=== PATIENT | female | born 1990 | race Two or more races ===

== ENCOUNTER 2023-05-28 13:32 | Outpatient (REF) | payer OTHER, SELFPAY ==
[2023-05-28 18:07] LABS: CT PCR NOT DETECTED (Not Detect.); NG PCR NOT DETECTED (Not Detect.)
[2023-05-29 10:34] LABS: BV Int Neg Control Negative (Negative); BV Int Pos Control Positive (Positive)
[2023-06-03 04:13] LABS: HPV mRNA E6/E7 rflx Not Detected (Not Detected)
== END 2023-05-28 13:33 | disposition home or self-care (01) ==
LOC: HO.LNP 13:32
PROVIDERS: Visit Provider Advanced Practice Midwife
DX: Z01.419 Encounter for gynecological examination (general) (routine) without abnormal findings (principal); Z11.51 Encounter for screening for human papillomavirus (HPV)
CPT/HCPCS: 0353U; 87480; 87510; 87624; 87660; 88142

== ENCOUNTER 2023-05-28 13:32 | Outpatient (AMB) | payer OTHER, SELFPAY ==
--- NOTE | 2023-05-28 13:35 | MHC.OFFVIS ---
Intake Vital Signs 05/28/23 13:37 Height 4 ft 10 in Weight 179 lb BMI 37.4 BP 130/72 Intake Visit Reasons: New patient Annual/DO NOT RS Intake Note: pt is requesting control Physics Instructor Required: No Information Interpreted: non-clinical & clinical Director Of Leadership Development: Director Of Leadership Development Present (Aidyn) Allergies No Known Allergies Allergy (Verified 05/28/23 13:40) Medication List - Last Reconciled 05/28/23 by Aarti Hollis CNM levonorgestrel-ethinyl estrad 0.15 mg-30 mcg (91) 1 tab PO DAILY Is last menstrual period known: Yes Last menstrual period: 05/21/23 Post menopausal: No Patient : No HPI New patient Annual/DO NOT RS HPI Details Deana bourgeoissharonda is here for new patient access representative. She used to get all her care in [place] she ran out of control pills and she said her primary ordered her some control pills and she had them from the pharmacy but somehow she got messed up because somebody told her to not take the placebo pills so she started skipping the placebo pills and then she did not restart so she had been off her pills for about a month and then it towards the end of April she passed this big huge clot that she was worried might of been a miscarriage and she so stressed out because she does not need a at this stage of her life. Her children are growing up and they have 3 children and she is busy working and making a new life here and would not be a good thing at this time. Does have on opened packs at home now from her [facility] but what is prescribed in the system is not in fact the pill that she was on in [place] and so we spent some significant time with her scrolling through her phone and finally finding access to her prescriptions from [place] so that we could change the formulation she was on a monthly pill getting her period every month and so I am prescribing that today with 3 month supply at a time with enough refills for over year. Reviewed in detail how to start the pill back and I recommend she started today as soon as she gets home because her menses came heavy this past Wednesday and is just finishing now and she wants to get protected as soon as possible. Then she can take her pill tomorrow morning and resume morning taking of pills. I reminded her to also put the label insert into the pack so that she has stop knows that she started this pack on Wednesday. She has been trying to get healthier and she has been off of soda for 73 days though she does not count maggi Rodriguez soda. She also has some fasting blood work to do for her primary care provider in she is waiting for a day that she can go and not have childcare responsibilities and running off to work. She thinks she had 1 abnormal Pap smear years ago but they were all normal since. She had 3 C sections all done at [place] and she lived in [place] all her life. 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 She got nervous when she saw the blood clot on her pad because she has been learning a lot about blood clots. [facility] Medical History (Updated 05/28/23 @ 14:50 by Aarti Hollis CNM) Hypertriglyceridemia Obesity Surgical History (Updated 03/11/23 @ 10:32 by Roseanne Beaver MD) History of section History of oral surgery Family History (Updated 03/11/23 @ 11:15 by Queenie Phillips [facility]) Mother Osteoarthritis Asthma Mental health disorder Maternal Grandmother Colon cancer HTN (hypertension) Son Asthma Paternal Uncle Substance use disorder Paternal Uncle Substance use disorder Social History (Updated 03/11/23 @ 13:00 by Roseanne Beaver MD) Housing: Apartment Patient Tobacco Use Status: Never used Tobacco e-Cigarette/Vaping Use: Never Used Substance Use Type: Marijuana service: No Current occupational status: employed Cognitive needs: No Hearing needs: No Vision needs: No Female Reproductive History Menstrual Duration of menses: 3-5 days Date of last menstrual period: 05/21/23 control method: pills Total pregnancies: 4 Ab spontaneous: 1 Multiple births: 3 Physical Exam Vital Signs: Last Vital Signs BP 130/72 05/28/23 13:37 BMI result Body Mass Index 37.4 Const General: healthy appearing, comfortable, no acute distress, well developed and alert Nutritional Appearance: average body habitus Orientation/consciousness: patient oriented x3 Limitations: no limitations HEENT Head: Yes normocephalic Neck Neck: Yes normal visual inspection Chest Chest palpation & inspection: normal inspection of the chest Breast/axilla inspection: normal inspection of the breasts and normal inspection of the axillae Breast/axilla palpation: normal palpation of the breasts and normal palpation of the axillae Resp Effort & Inspection: normal respiratory effort GI Inspection: Yes normal to inspection, No Abdominal wall edema and No distended Palpation (GI): Soft to palpation and nontender General: Yes bladder normal to palpation External Female Exam: normal external appearance and normal appearance of the urethra Speculum Exam - Vagina: normal appearance of the vagina, normal palpation and normal vaginal discharge Speculum Exam - Cervix: normal appearance of the cervix, normal palpation and nontender Bimanual exam- vagina & uterus: normal bimanual exam, normal palpation, uterine size normal, bladder normal to palpation, consistency normal, normal palpation, uterine mobility normal, uterine shape normal, No Cervical tenderness present, non-tender and no cervical motion tenderness Bimanual Exam- Adnexa, other: normal adnexae, no masses, normal and No adnexal tenderness Neuro General: patient oriented x3 Assessment & Plan Assessment & Plan (1) BCP ( control pills) initiation: Code(s): Z30.011 - Encounter for initial prescription of contraceptive pills (2) Well woman exam with routine gynecological exam: Code(s): Z01.419 - Encounter for gynecological examination (general) (routine) without abnormal findings (3) Screening for malignant neoplasm of cervix: Code(s): Z12.4 - Encounter for screening for malignant neoplasm of cervix (4) Screen for sexually transmitted diseases: Code(s): Z11.3 - Encounter for screening for infections with a predominantly sexual mode of transmission (5) control counseling: Code(s): Z30.09 - Encounter for other general counseling and advice on contraception Plan Deana taveras is here for new patient access representative. She used to get all her care in [place] she ran out of control pills and she said her primary ordered her some control pills and she had them from the pharmacy but somehow she got messed up because somebody told her to not take the placebo pills so she started skipping the placebo pills and then she did not restart so she had been off her pills for about a month and then it towards the end of April she passed this big huge clot that she was worried might of been a miscarriage and she so stressed out because she does not need a at this stage of her life. Her children are growing up and they have 3 children and she is busy working and making a new life here and would not be a good thing at this time. Does have on opened packs at home now from her [facility] but what is prescribed in the system is not in fact the pill that she was on in [place] and so we spent some significant time with her scrolling through her phone and finally finding access to her prescriptions from [place] so that we could change the formulation she was on a monthly pill getting her period every month and so I am prescribing that today with 3 month supply at a time with enough refills for over year. Reviewed in detail how to start the pill back and I recommend she started today as soon as she gets home because her menses came heavy this past Wednesday and is just finishing now and she wants to get protected as soon as possible. Then she can take her pill tomorrow morning and resume morning taking of pills. I reminded her to also put the label insert into the pack so that she has stop knows that she started this pack on Wednesday. She has been trying to get healthier and she has been off of soda for 73 days though she does not count maggi Rodriguez soda. She also has some fasting blood work to do for her primary care provider in she is waiting for a day that she can go and not have childcare responsibilities and running off to work. She thinks she had 1 abnormal Pap smear years ago but they were all normal since. She had 3 C sections all done at [place] and she lived in [place] all her life. 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 She got nervous when she saw the blood clot on her pad because she has been learning a lot about blood clots. -----Discussed in this visit the following: healthy balanced diet, regular and consistent exercise, getting recommended health screens, doing the best she can for her particular health concerns, kegel exercises, pap smear screening and followup recommendations, mammography screening and SBE, normal changes in cycles in her life stage--- . She is also worried about possible bacterial vaginosis so full testing is being done as along with the Pap. Additionally she noticed that well she was off the pills she felt really good and her sense of libido came back and she actually liked it. So the discussion also took place about the possible use of a ParaGard IUD in the future if she so chooses but she would have to come in signed paperwork and I would only want to insert at the very very beginning of her period because her cervix is so tiny and nulliparous as she is not delivered through her cervix ever and additionally her uterus is markedly anterior because of the scars. I gave her the written information and she will think about it STI blood work was ordered and she may get it done with her primary care provider prescribed blood work. Orders: Orders Hepatitis B Surface Antigen Today Z11.3 - Encounter for screening for infections with a predominantly sexual mode of transmission, Z12.4 - Encounter for screening for malignant neoplasm of cervix, Z30.09 - Encounter for other general counseling and advice on contraception Hepatitis C Antibody Today Z11.3 - Encounter for screening for infections with a predominantly sexual mode of transmission, Z12.4 - Encounter for screening for malignant neoplasm of cervix, Z30.09 - Encounter for other general counseling and advice on contraception HIV Ab/Ag Today Z11.3 - Encounter for screening for infections with a predominantly sexual mode of transmission, Z12.4 - Encounter for screening for malignant neoplasm of cervix, Z30.09 - Encounter for other general counseling and advice on contraception Syphilis Screen Today Z11.3 - Encounter for screening for infections with a predominantly sexual mode of transmission, Z12.4 - Encounter for screening for malignant neoplasm of cervix, Z30.09 - Encounter for other general counseling and advice on contraception Pap Smear Today Z01.419 - Encounter for gynecological examination (general) (routine) without abnormal findings, Z11.3 - Encounter for screening for infections with a predominantly sexual mode of transmission, Z12.4 - Encounter for screening for malignant neoplasm of cervix, Z30.09 - Encounter for other general counseling and advice on contraception Bacterial Vaginosis Panel Today Z01.419 - Encounter for gynecological examination (general) (routine) without abnormal findings, Z11.3 - Encounter for screening for infections with a predominantly sexual mode of transmission, Z12.4 - Encounter for screening for malignant neoplasm of cervix, Z30.09 - Encounter for other general counseling and advice on contraception CT NG by PCR Today Z01.419 - Encounter for gynecological examination (general) (routine) without abnormal findings, Z11.3 - Encounter for screening for infections with a predominantly sexual mode of transmission, Z12.4 - Encounter for screening for malignant neoplasm of cervix, Z30.09 - Encounter for other general counseling and advice on contraception Medications: New levonorgestrel-ethinyl estrad 0.15-0.03 mg 1 tab PO DAILY 84 tabs 4RF Coding Level of Care Code New Pt Prev Care 18-39yr([id number] Diagnoses BCP ( control pills) initiation Z30.011 Well woman exam with routine gynecological exam Z01.419 Screening for malignant neoplasm of cervix Z12.4 Screen for sexually transmitted diseases Z11.3 control counseling Z30.09
[2023-05-28 13:37] VITALS: BP 130/72; BMI 37.4
== END 2023-05-28 14:50 | disposition home or self-care (01) ==
LOC: HO.HWS 13:32
PROVIDERS: PCP Internal Medicine; Visit Provider Advanced Practice Midwife
DX: Z01.419 Encounter for gynecological examination (general) (routine) without abnormal findings (principal); Z12.4 Encounter for screening for malignant neoplasm of cervix; Z11.3 Encounter for screening for infections with a predominantly sexual mode of transmission; Z30.09 Encounter for other general counseling and advice on contraception
CPT/HCPCS: 99385

== ENCOUNTER 2023-12-17 14:55 | Outpatient (REF) | payer OTHER, SELFPAY ==
[2023-12-18 05:23] LABS: CT PCR NOT DETECTED (Not Detect.); NG PCR NOT DETECTED (Not Detect.)
[2023-12-18 13:48] LABS: BV Int Neg Control Negative (Negative); BV Int Pos Control Positive (Positive)
== END 2023-12-17 14:56 | disposition home or self-care (01) ==
LOC: HO.LAB 14:55
PROVIDERS: Visit Provider Advanced Practice Midwife
DX: Z01.419 Encounter for gynecological examination (general) (routine) without abnormal findings (principal); N89.8 Other specified noninflammatory disorders of vagina; R35.0 Frequency of micturition; Z20.2 Contact with and (suspected) exposure to infections with a predominantly sexual mode of transmission
CPT/HCPCS: 0353U; 81025; 87480; 87510; 87660; 99212

== ENCOUNTER 2023-12-17 14:55 | Outpatient (AMB) | payer OTHER, SELFPAY ==
[2023-12-17 15:04] VITALS: BP 120/72; BMI 36.2
--- NOTE | 2023-12-17 15:04 | A.OFFVIS_ITS ---
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 Required: No Information Interpreted: clinical only Inventory Checker: Inventory Checker Present Allergies No Known Allergies Allergy (Verified 12/17/23 15:04) Medication List - Last Reconciled 12/17/23 by Aarti Hollis CNM levonorgestrel-ethinyl estrad 0.15 mg-30 mcg (91) 1 tab PO DAILY levonorgestrel-ethinyl estrad 0.15-0.03 mg 1 tab PO DAILY Is last menstrual period known: Yes HPI Vaginal discharge HPI Details Patient is here because she is has this problematic discharge that she is noticed before it smells to her like when she had BV she has got a and knowing white discharge that she really does not like she has been sexually active with her partner she did mess up on her pills a little bit and had to double up a few times so she has not gotten her period yet and she will do a test here to also she has been feeling a little frequency of urination. She just ran here from work so she has not Peed yet. She will give us a urine test there is a clingy white homogeneous discharge consistent with a bacterial vaginosis so extensive teaching and discussion about BV took place during this visit including recommendation to have her partner wear condoms which he does not want to do and the treatments that are available I gave her the option of Metrogel versus metronidazole pills with all of the discussion about precautions while taking and while being treated and she opted to take the pills she will possibly start them tomorrow. She knows about no alcohol while she is taking them. Also recommend food in her stomach because of the possibility of gastric upset. Discussed in general the more common treatments for bacterial vaginosis include metronidazole pills, or metronidazole gel which can be repeated more frequently. Additionally there is the option of [id number] boric acid capsules that would be placed in the vagina and they can sometimes be used more frequently as well however condoms are still the best plan in terms of prevention. Testing for STIs done. In addition we reviewed her control pills in detail because she was told a generic name for them so we double checked what she [facility] it is in fact exact same formulation of the OCPs that was prescribed. She is going to continue on her pills as she is moving forward having doubled up this week regardless of menses. test to be done now [facility] Medical History (Updated 12/17/23 @ 15:12 by Aarti Hollis CNM) Obesity Hypertriglyceridemia Surgical History (Updated 03/11/23 @ 10:32 by Roseanne Beaver MD) History of oral surgery History of section Family History (Updated 03/11/23 @ 11:15 by Queenie Phillips CMA) Mother Osteoarthritis Asthma Mental health disorder Maternal Grandmother Colon cancer HTN (hypertension) Son Asthma Paternal Uncle Substance use disorder Paternal Uncle Substance use disorder Social History (Updated 03/11/23 @ 13:00 by Roseanne Beaver MD) Housing: Apartment Patient Tobacco Use Status: Never used Tobacco e-Cigarette/Vaping Use: Never Used Substance Use Type: Marijuana service: No Current occupational status: employed Cognitive needs: No Hearing needs: No Vision needs: No Female Reproductive History Menstrual Age of Menarche: 14 Duration of menses: 3-5 days control method: pills Total pregnancies: 4 Full term: 3 Date of last pap smear: 05/31/23 (negative) History of abnormal pap smear: No Physical Exam Vital Signs: Last Vital Signs BP 120/72 12/17/23 15:04 BMI result Body Mass Index 36.2 Other: Speculum exam within normal limits though discharge is white clingy creamy claims to vaginal [place] consistent with BV cervix nulliparous deep in pelvis difficult to palpate but nontender uterus nontender good muscle tone. External Female Exam: normal external appearance Speculum Exam - Vagina: normal appearance of the vagina Speculum Exam - Cervix: normal appearance of the cervix Bimanual exam- vagina & uterus: normal bimanual exam, uterine size normal, consistency normal, uterine mobility normal, uterine shape normal and non-tender Bimanual Exam- Adnexa, other: normal adnexae, no masses and No adnexal tenderness Results Reviewed Results Reviewed: Back test negative Assessment & Plan Assessment & Plan (1) Screen for sexually transmitted diseases: Code(s): Z11.3 - Encounter for screening for infections with a predominantly sexual mode of transmission (2) Screening for malignant neoplasm of cervix: Comment: 05/28/2023 Pap is negative with negative HPV. Code(s): Z12.4 - Encounter for screening for malignant neoplasm of cervix (3) Problematic vaginal discharge: Code(s): N89.8 - Other specified noninflammatory disorders of vagina Plan Patient is here because she is has this problematic discharge that she is noticed before it smells to her like when she had BV she has got a and knowing white discharge that she really does not like she has been sexually active with her partner she did mess up on her pills a little bit and had to double up a few times so she has not gotten her period yet and she will do a test here to also she has been feeling a little frequency of urination. She just ran here from work so she has not Peed yet. She will give us a urine test there is a clingy white homogeneous discharge consistent with a bacterial vaginosis so extensive teaching and discussion about BV took place during this visit including recommendation to have her partner wear condoms which he does not want to do and the treatments that are available I gave her the option of Metrogel versus metronidazole pills with all of the discussion about precautions while taking and while being treated and she opted to take the pills she will possibly start them tomorrow. She knows about no alcohol while she is taking them. Also recommend food in her stomach because of the possibility of gastric upset. Discussed in general the more common treatments for bacterial vaginosis include metronidazole pills, or metronidazole gel which can be repeated more frequently. Additionally there is the option of [id number] boric acid capsules that would be placed in the vagina and they can sometimes be used more frequently as well however condoms are still the best plan in terms of prevention. Testing for STIs done. In addition we reviewed her control pills in detail because she was told a generic name for them so we double checked [facility] it is in fact exact same formulation of the OCPs that was prescribed. She is going to continue on her pills as she is moving forward having doubled up this week regardless of menses. test to be done now Orders: Orders Bacterial Vaginosis Panel Today Z20.2 - Contact with and (suspected) exposure to infections with a predominantly sexual mode of transmission CT NG by PCR Today Z01.419 - Encounter for gynecological examination (general) (routine) without abnormal findings Medications: New metronidazole 500 mg PO Q12H 14 tabs 0RF Coding Level of Care Code Est Pt Level 3 (72127) Diagnoses Screen for sexually transmitted diseases Z11.3 Screening for malignant neoplasm of cervix Z12.4 Problematic vaginal discharge N89.8
== END 2023-12-17 15:39 | disposition home or self-care (01) ==
LOC: HO.HWSM 14:55
PROVIDERS: Visit Provider Advanced Practice Midwife
DX: Z11.3 Encounter for screening for infections with a predominantly sexual mode of transmission (principal); Z12.4 Encounter for screening for malignant neoplasm of cervix; N89.8 Other specified noninflammatory disorders of vagina; Z32.02 Encounter for pregnancy test, result negative
CPT/HCPCS: 99213

== ENCOUNTER 2024-03-17 14:30 | Outpatient (AMB) | payer OTHER, SELFPAY ==
[2024-03-17 14:40] VITALS: BP 124/76; BMI 36.6
--- NOTE | 2024-03-17 14:40 | A.OFFVIS_ITS ---
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 Information Interpreted: non-clinical & clinical Net Solutions Architect: Net Solutions Architect Present (Carlie) Allergies No Known Allergies Allergy (Verified 03/17/24 14:49) Medication List - Last Reconciled 03/17/24 by Aarti Hollis CNM levonorgestrel-ethinyl estrad 0.15-0.03 mg 1 tab PO DAILY Is last menstrual period known: No Post menopausal: No HPI HPI vaginal discharge: Details: Patient is here she called this morning she is having some vaginal white di scharge and some vaginal itching in addition she has missed up on her pills she has had a lot going on with her kids and after-school activities and activities and she had to travel to [place] because her uncle and she had just support her father and when she came back she has been so busy with work and school and kids she has messed up on her control pills and has not taken them all week so she missed from last Wednesday through today. Her partner works in [place] and comes home and they see each other for 2 days on around the weekend so she last had sex over a week ago. She has not started bleeding yet. She feels embarrassed that she messed up on the pills so much.. [facility] Medical History Obesity Hypertriglyceridemia Surgical History History of oral surgery History of section Family History Mother Osteoarthritis Asthma Mental health disorder Maternal Grandmother Colon cancer HTN (hypertension) Son Asthma Paternal Uncle Substance use disorder Paternal Uncle Substance use disorder Social History Housing: Apartment Patient Tobacco Use Status: Never used Tobacco e-Cigarette/Vaping Use: Never Used Substance Use Type: Marijuana service: No Current occupational status: employed Cognitive needs: No Hearing needs: No Vision needs: No Female Reproductive History Menstrual Age of Menarche: 14 Duration of menses: 3-5 days control method: pills Date of last pap smear: 05/31/23 (negative) Physical Exam Vital Signs: Last Vital Signs BP 124/76 03/17/24 14:40 BMI result Body Mass Index 36.6 Other: Vagina is pink discharge is white scant appears either consistent with normal or very very mild yeast cervix is extremely difficult to visualize very anterior. I did not get a complete view of it today. External Female Exam: normal external appearance and normal appearance of the urethra Speculum Exam - Vagina: normal appearance of the vagina and normal vaginal discharge Speculum Exam - Cervix: normal appearance of the cervix, Cervical os closed and Other cervical findings present (Her cervix is markedly anterior secondary to her multiple c/s) Assessment & Plan Assessment & Plan (1) Problematic vaginal discharge: Comment: 03/17/24-will treat as mild yeast today awaiting cultures. Code(s): N89.8 - Other specified noninflammatory disorders of vagina Category: Medical (2) control counseling: Comment: Has missed 5 days of pills, options discussed she will probably double up for 3 days but also I recommend condoms at minimum for 2 weeks from now on and any time she messes up. Other options discussed. Code(s): Z30.09 - Encounter for other general counseling and advice on contraception Category: Medical (3) Screen for sexually transmitted diseases: Code(s): Z11.3 - Encounter for screening for infections with a predominantly sexual mode of transmission Category: Medical Plan Testing done for gonorrhea chlamydia trichomoniasis Gardnerella and Nieves. We will treat as mild yeast it appears very close to normal quite frankly Rx sent for Monistat to use internally and externally. Results of testing will be available Wednesday. For the control pills since she is missed 5 days discussed the option of either waiting for her menses to come and then starting again with a new pack or as she seems to prefer doubling up with her pills so in this case she would need to double up for least 3 days but she also needs to use condoms for the minimum of the next 2 weeks and any time she ever messes up on her pills again in the future. We will schedule her annual exam whenever it is due I refilled her pills as well so she does not run out Discussed need for rest recommend no sex without a condom for minimum of 2 weeks. We have also discussed alternative methods she has not interested in something with hormones discussed the JALEESA other method with new hormones would be a ParaGard IUD it would be challenging to insert she had an IUD in the past but it got stuck to be surgically removed. Her cervix exam really anterior and her uterus is probably slightly fixed anteriorly secondary to her multiple . Orders: Orders CT NG by PCR Today N89.8 - Other specified noninflammatory disorders of vagina Bacterial Vaginosis Panel Today N89.8 - Other specified noninflammatory disorders of vagina Medications: New miconazole nitrate 2% (Miconazole-7) 1 appful vaginal BEDTIME 7 days 45 grams 1RF Refilled levonorgestrel-ethinyl estrad 0.15-0.03 mg 1 tab PO DAILY 84 tabs 4RF Coding Level of Care Code Est Pt Level 3 (52619) Diagnoses Problematic vaginal discharge N89.8 control counseling Z30.09 Screen for sexually transmitted diseases Z11.3
== END 2024-03-17 15:16 | disposition home or self-care (01) ==
LOC: HO.HWSM 14:30
PROVIDERS: Visit Provider Advanced Practice Midwife
DX: N89.8 Other specified noninflammatory disorders of vagina (principal); Z30.09 Encounter for other general counseling and advice on contraception
CPT/HCPCS: 99213

== ENCOUNTER 2024-03-17 14:30 | Outpatient (REF) | payer OTHER, SELFPAY ==
[2024-03-18 10:47] LABS: Bacterial Vaginosis PCR NEGATIVE (Negative); Candida Group PCR DETECTED (Not Detect); Candida glab krusei PCR NOT DETECTED (Not Detect); Trichomonas vaginalis PCR NOT DETECTED (Not Detect)
[2024-03-18 10:56] LABS: CT PCR NOT DETECTED (Not Detect.); NG PCR NOT DETECTED (Not Detect.)
== END 2024-03-17 14:31 | disposition home or self-care (01) ==
LOC: HO.LNP 14:30
PROVIDERS: Visit Provider Advanced Practice Midwife
DX: N89.8 Other specified noninflammatory disorders of vagina (principal); Z20.2 Contact with and (suspected) exposure to infections with a predominantly sexual mode of transmission; Z30.09 Encounter for other general counseling and advice on contraception
CPT/HCPCS: 0352U; 0353U; 99212

== ENCOUNTER 2024-09-28 15:09 | Outpatient (REF) | payer OTHER, SELFPAY ==
[2024-09-29 15:06] LABS: CT PCR NOT DETECTED (Not Detect.); NG PCR NOT DETECTED (Not Detect.)
[2024-09-29 17:24] LABS: Bacterial Vaginosis PCR NEGATIVE (Negative); Candida Group PCR DETECTED (Not Detect); Candida glab krusei PCR NOT DETECTED (Not Detect); Trichomonas vaginalis PCR NOT DETECTED (Not Detect)
== END 2024-09-28 15:10 | disposition home or self-care (01) ==
LOC: HO.LAB 15:09
PROVIDERS: PCP Internal Medicine; Visit Provider Advanced Practice Midwife
DX: Z01.419 Encounter for gynecological examination (general) (routine) without abnormal findings (principal); N89.8 Other specified noninflammatory disorders of vagina; Z20.2 Contact with and (suspected) exposure to infections with a predominantly sexual mode of transmission
CPT/HCPCS: 0352U; 87491; 87591; 99395; 99459

== ENCOUNTER 2024-09-28 15:09 | Outpatient (AMB) | payer OTHER, SELFPAY ==
[2024-09-28 15:07] VITALS: BP 118/70; BMI 36.2
--- NOTE | 2024-09-28 15:07 | A.OFFVIS_ITS ---
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 She is working she is juggling care for her 3 kids. She is not entirely certain when her last period was but she felt like she was getting it at work and she got cortex on the way home and so she is looking of the her phone trying to figure out exactly what day she got her period she thinks to her best guess that it was maybe the 6th of the 7th but she thinks it was starting it would so probably with . She was thinking of starting the pills over next Wednesday starting fresh. She does have condoms at home and she intends to make a partner use them. She did check with her fiance about her last period could she thought he had remember better but he did not either. She had an IUD in the past but she says it got stuck and she is nervous to how that happen again she had 3 C sections so it is hard to reach her cervix. [facility] Medical History Obesity Hypertriglyceridemia Surgical History History of oral surgery History of section Family History Mother Osteoarthritis Asthma Mental health disorder Maternal Grandmother Colon cancer HTN (hypertension) Son Asthma Paternal Uncle Substance use disorder Paternal Uncle Substance use disorder Social History Housing: Apartment Patient Tobacco Use Status: Never used Tobacco e-Cigarette/Vaping Use: Never Used Substance Use Type: Marijuana service: No Current occupational status: employed Cognitive needs: No Hearing needs: No Vision needs: No Female Reproductive History Menstrual Age of Menarche: 14 Duration of menses: 3-5 days Date of last menstrual period: 09/21/24 control method: pills Total pregnancies: 3 Full term: 3 Date of last pap smear: 05/31/23 (negative) Physical Exam Vital Signs: Last Vital Signs BP 118/70 09/28/24 15:07 BMI result Body Mass Index 36.2 Const General: healthy appearing, comfortable, no acute distress, well developed and alert Nutritional Appearance: average body habitus Orientation/consciousness: patient oriented x3 Limitations: no limitations HEENT Head: Yes normocephalic Neck Neck: Yes normal visual inspection Chest Chest palpation & inspection: normal inspection of the chest Breast/axilla inspection: normal inspection of the breasts and normal inspection of the axillae Breast/axilla palpation: normal palpation of the breasts and normal palpation of the axillae Resp Effort & Inspection: normal respiratory effort GI Inspection: Yes normal to inspection, No Abdominal wall edema and No distended Palpation (GI): Soft to palpation and nontender Other: Cervix is pink nulliparous difficult to fully visualize and palpate small very anterior secondary to scarring from C-sections affixing uterus anteriorly. Uterus anteverted nontender good muscle tone General: Yes bladder normal to palpation External Female Exam: normal external appearance and normal appearance of the urethra Speculum Exam - Vagina: normal appearance of the vagina, normal palpation and normal vaginal discharge Speculum Exam - Cervix: normal appearance of the cervix, normal palpation and nontender Bimanual exam- vagina & uterus: normal bimanual exam, normal palpation, uterine size normal, bladder normal to palpation, consistency normal, normal palpation, uterine mobility normal, uterine shape normal, No Cervical tenderness present, non-tender and no cervical motion tenderness Bimanual Exam- Adnexa, other: normal adnexae, no masses, normal and No adnexal tenderness Neuro General: patient oriented x3 Results Reviewed Results Reviewed: brandi: Darling Erwin Age/Sex: 33/F Attending: Aarti Hollis CNM : 1990 Submitted by: Aarti Hollis CNM Copies to: MR #: [id number] Status: DEP REF Collected: 05/28/23 Location: [facility] Received: 05/31/23 Interpretation Satisfactory for evaluation. Negative for intraepithelial lesion or malignancy. HPV mRNA E6/E7: NOT DETECTED This assay detects E6/E7 viral messenger RNA (mRNA) from 14 high-risk HPV types (16, 18, 31, 33, 35, 39, 45, 51, 52, 56, 58, 59, 66, 68) HPV testing performed by [facility], [place], [place]. See reference laboratory pion of the EMR for entire report. Clinical Information LMP:05/21/23 Previous PAP test:Unknown date/findings Material Received ThinPrep-Cervical Electronically Signed By: OPAL Mora (ASCP) 06/15/23 1022 The Pap Test is a screening procedure with the inherent possibility of both false negative and false positive results. Results should be interpreted in the context of historic and current clinical findings. Reliability of the Pap Test is enhanced by performing the test on a regular repetitive basis. Patient: Darling Erwin Age/Sex: 33/F MR#: [id number] Page 1 of 1 Assessment & Plan Assessment & Plan (1) BCP ( control pills) initiation: Comment: She has messed up so many times and the pills the today I am recommending she simply start right over again as a new start. I strongly recommend taking them morning since she keeps forgetting not with the 1 exception be to start this evening to get her started on the pack then tomorrow morning start taking pills Q am. Code(s): Z30.011 - Encounter for initial prescription of contraceptive pills Category: Medical (2) Well woman exam with routine gynecological exam: Code(s): Z01.419 - Encounter for gynecological examination (general) (routine) without abnormal findings Category: Medical (3) Screening for malignant neoplasm of cervix: Comment: 05/28/2023 Pap is negative with negative HPV. Code(s): Z12.4 - Encounter for screening for malignant neoplasm of cervix Category: Medical (4) control counseling: Comment: Has missed 5 days of pills, options discussed she will probably double up for 3 days but also I recommend condoms at minimum for 2 weeks from now on and any time she messes up. Other options discussed.///09/28/24-had messed up on pills again believes LMP 09/22. I recommend she restart the pills this evening and from tomorrow morning on take them every morning reviewed pills in detail. Code(s): Z30.09 - Encounter for other general counseling and advice on contraception Category: Medical Plan -----Discussed in this visit the following: healthy balanced diet, regular and consistent exercise, getting recommended health screens, doing the best she can for her particular health concerns, kegel exercises, pap smear screening and followup recommendations, mammography screening and SBE, normal changes in cycles in her life stage--- . She is not due for Pap smear her last 1 was negative. Testing done for STIs but her discharge appears clear normal. Reviewed how she has been dealing with the pills she has messed up on them several times and keeps having to restart. She is not interested in anything else is this time life is very stressful and she has juggling a lot with having bought a new house and working in caring for her 3 kids she is on her way to an appointment with her son at 03:45 and so is in a hurry today. Reviewed with her her best guess of when her last periods started to her best guess it probably started on the though the because it with a week day and she was heading home from work when she had to stop it by [employer] and that would lean towards Wednesday the . Based on this I recommend that she go home and start her pill had this evening when she gets home and tomorrow take the 2nd day in the Pap and from then on try to take them every morning she had taken them at night and keeps forgetting them. Reviewed that most times, we are all sharp food in the morning and better at remembering things like did medications in the morning I reminded her tease the day of the week sticker and a fix the Wednesday etc. sticker to pill Pack to keep her straight. I do not recommend she wait until Wednesday because that would be more than 5 days since the start of her LMP today is day 6 by her recollection. She does not need any other testing for STIs other than what we did with the exam exam appears within normal limits I also urged her to think about whether not she would be open to any other long-term method since she has so much on her plate in remembering pills is becoming challenging. RTC 1 year Orders: Orders Bacterial Vaginosis Panel Today N89.8 - Other specified noninflammatory disorders of vagina CT NG by PCR Today N89.8 - Other specified noninflammatory disorders of vagina, Z01.419 - Encounter for gynecological examination (general) (routine) without abnormal findings, Z20.2 - Contact with and (suspected) exposure to infections with a predominantly sexual mode of transmission Medications: Refilled levonorgestrel-ethinyl estrad 0.15-0.03 mg 1 tab PO DAILY 84 tabs 4RF Coding Level of Care Code Est Pt Prev Care 18-39y(45969) Diagnoses BCP ( control pills) initiation Z30.011 Well woman exam with routine gynecological exam Z01.419 Screening for malignant neoplasm of cervix Z12.4 control counseling Z30.09
== END 2024-09-28 15:42 | disposition home or self-care (01) ==
LOC: HO.HWSM 15:09
PROVIDERS: PCP Internal Medicine; Visit Provider Advanced Practice Midwife
DX: Z30.011 Encounter for initial prescription of contraceptive pills (principal); Z01.419 Encounter for gynecological examination (general) (routine) without abnormal findings; Z12.4 Encounter for screening for malignant neoplasm of cervix; Z30.09 Encounter for other general counseling and advice on contraception
CPT/HCPCS: 99395

== ENCOUNTER 2025-08-20 09:46 | Outpatient (AMB) | payer BC, MEDICAID, SELFPAY ==
--- NOTE | 2025-08-20 10:52 | A.OFFPC_ITS ---
Vital Signs 08/20/25 10:55 Height 4 ft 10 in Weight 181 lb BMI 37.8 BP 110/80 Blood Pressure Location Lt brachial Position Sitting Respiration 16 Pulse 81 Pulse Source Pulse Oximeter Temp 97.8 F Temp Source Oral Pulse Oximetry (%) 97 Oxygen Delivery Method Room Air Intake Visit Reasons: Annual PE Intake Note: Pt is here today for her PE: Last papsmear 05/31/23 Stapler Coil Unit Required: No Allergies No Known Allergies Allergy (Verified 08/20/25 11:24) Medication List - Last Reconciled 08/20/25 by Roseanne Beaver MD levonorgestrel-ethinyl estrad 0.15-0.03 mg 1 tab PO DAILY Tobacco use date assessed: 08/20/25 Dental Screening Dental Screen Date: 08/20/25 Did you have a dental visit in the last 12 months?: Yes Did you have a dental problem in the last 6 months where you did not have access to dental care?: No Was dental information given to patient?: Patient has dentist HPI Annual PE HPI Details 35-year-old lady here today for her phys ical exam. She sees [facility], for her routine Pap and pelvic exam, with last cervical cancer screening done in 2022 with benign findings. Currently on control pills for contraception. Flu vaccine given today. PFSH Medical History Obesity Hypertriglyceridemia Surgical History History of oral surgery History of section Family History Mother Osteoarthritis Asthma Mental health disorder Maternal Grandmother Colon cancer HTN (hypertension) Son Asthma Paternal Uncle Substance use disorder Paternal Uncle Substance use disorder Social History Housing: Apartment Patient Tobacco Use Status: Never used Tobacco e-Cigarette/Vaping Use: Never Used Substance Use Type: Marijuana service: No Current occupational status: employed Cognitive needs: No Hearing needs: No Vision needs: No Female Reproductive History Menstrual Age of Menarche: 14 Questionnaire PHQ-9 Over the last 2 weeks, how often have you been bothered by any of the following problems? 1. Little interest or pleasure in doing things: not at all 2. Feeling down, depressed, or hopeless: not at all 3. Trouble falling or staying asleep, or sleeping too much: not at all 4. Feeling tired or having little energy: several days 5. Poor appetite or overeating: not at all 6. Feeling bad about yourself - or that you are a failure or have let yourself or your family down: not at all 7. Trouble concentrating on things, such as reading the newspaper or watching television: not at all 8. Moving or speaking so slowly that other people could have noticed. Or the opposite - being so fidgety or restless that you have been moving around a lot more than usual: not at all 9. Thoughts that you would be better off or of hurting yourself in some way: not at all Total score: 1 Depression Screening Interpretation: Negative Depression Screening Done: Yes 50516 - PHQ-9 Billing: Yes Source: Developed by Drs. Wallace Sesay, Lizbet Velasquez, Unruly Pagan and colleagues, with an educational kenan from [email or web address]. Thrive Questionnaire Date Thrive assessed: 08/20/25 I am a: Patient What is your living situation today?: I have a steady place to live Within the past 12 months, did the food you bought not last and you didn't have the money to get more?: I choose not to answer this question Within the past 12 months, did you worry whether your food would run out before you got money to buy more?: I choose not to answer this question Do you have trouble paying for medicines?: I choose not to answer this question Do you have trouble getting transportation to medical appointments?: I choose not to answer this question Do you have trouble paying your heating and electricity bill?: I choose not to answer this question Do you have trouble taking care of your child, family member or friend?: I choose not to answer this question Do you have trouble with day-to-day activities such as bathing, preparing meals, shopping, managing finances, etc.?: I choose not to answer this question Are you currently unemployed and looking for a job?: No Are you interested in more education?: I choose not to answer this question THRIVE Score: 0 AUDIT C Alcohol Use Questionnaire (AUDIT-C) 1. How often do you have a drink containing alcohol?: Never 2. How many drinks containing alcohol do you have on a typical day when you are drinking?: 1 or 2 3. How often do you have six or more drinks on one occasion?: Never Total Score: 0 Score Reviewed/Action Taken: Yes AUGUSTUS-7 AMB Questionnaire AUGUSTUS-7 Date AUGUSTUS - 7 assessed: 08/20/25 Feeling nervous, anxious, or on edge: 0 = Not at all Not being able to stop or control worryin = Not at all Worrying too much about different things: 0 = Not at all Trouble relaxin = Not at all Being so restless that it is hard to sit still: 0 = Not at all Becoming easily annoyed or irritable: 0 = Not at all Feeling afraid as if something awful might happen: 0 = Not at all Total AUGUSTUS-7 score (0-4 normal; 5-9 mild; 10-14 moderate; 15-21 severe): 0 Source: Developed by Drs. Wallace Sesay, Lizbet Velasquez, Unruly Pagan and colleagues, with an educational kenan from [email or web address]. AUGUSTUS-7 Assessment Billing AUGUSTUS-7 Assessment Tool: AUGUSTUS-7 Assessment 87715 Physical exam (Primary Care) Vital Signs: Last Vital Signs Temp 97.8 F 08/20/25 10:55 Pulse 81 08/20/25 10:55 Resp 16 08/20/25 10:55 BP 110/80 08/20/25 10:55 Pulse Ox 97 08/20/25 10:55 Oxygen Delivery Method Room Air 08/20/25 10:55 BMI result Body Mass Index 37.8 Tobacco/Smoking Status: Tobacco use Status Tobacco use date assessed 08/20/25 08/20/25 11:02 Patient Tobacco Use Status Never used Tobacco 08/20/25 10:52 e-Cigarette/Vaping Use Never Used 08/20/25 10:52 PHQ-9: PHQ-9 Score PHQ-9: Total score 1 08/20/25 11:25 Depression Screening Interpretation: Negative Thrive Assessment: Date of Thrive Assessment Date Thrive assessed 08/20/25 08/20/25 10:52 Office Procedures Flu Questionnaire Does the patient have a severe egg allergy?: No Does the patient have severe life threatening allergies?: No Does the patient have a fever or illness today?: No Has the patient ever had Guillain-[place] Syndrome?: No Has the patient ever had any past reaction to a flu shot?: No Immunizations Fluarix [id number] (PF) 45 mcg (15 mcg x 3)/0.5 mL IM syringe Performing Provider: Roseanne Beaver MD Performing Location: [facility] Administered by: Queenie Phillips CMA on 08/20/25 11:25 Dose Route Admin Location Dispensed Lot Number Expiration Date NDC Flight Engineer Instructor 0.5 mL IM Right Deltoid 0.5 mL [id number] 04/16/26 11925-844-28 [employer] VIS Given Date VIS Provided VIS Publication Date 08/20/25 Single Vaccine 24 Eligibility Eligibility Date Funding Source Not [facility] Eligible 08/20/25 Private Coding Level of Care Code Est Pt Prev Care 18-39y(77165) Diagnoses Hypertriglyceridemia E78.1 Obesity E66.9 Annual visit for general adult medical examination with abnormal findings Z00.0 1 Family history of thyroid disease Z83.49 Missed period N92.6 Advance directive discussed with patient Z71.89 Additional Codes AUGUSTUS-7 Assessment Billing - AUGUSTUS-7 Assessment Tool: AUGUSTUS-7 Assessment 27102 ([id number]) PHQ-9 - 95886 - PHQ-9 Billing: Yes ([id number]) Assessment & Plan Assessment & Plan (1) Hypertriglyceridemia: Code(s): E78.1 - Pure hyperglyceridemia Category: Medical (2) Obesity: Code(s): E66.9 - Obesity, unspecified Category: Medical (3) Annual visit for general adult medical examination with abnormal findings: Code(s): Z00.01 - Encounter for general adult medical examination with abnormal findings Plan: Flu vaccine given today (4) Family history of thyroid disease: Code(s): Z83.49 - Family history of other endocrine, nutritional and metabolic diseases (5) Missed period: Code(s): N92.6 - Irregular menstruation, unspecified (6) Advance directive discussed with patient: Code(s): Z71.89 - Other specified counseling Orders: Orders Lipid Panel Today E66.9 - Obesity, unspecified, E78.1 - Pure hyperglyceridemia, Z00.01 - Encounter for general adult medical examination with abnormal findings Basic Metabolic Panel Fasting Today E66.9 - Obesity, unspecified, E78.1 - Pure hyperglyceridemia, Z00.01 - Encounter for general adult medical examination with abnormal findings Aspartate Amino Transferase Today E66.9 - Obesity, unspecified, E78.1 - Pure hyperglyceridemia, Z00.01 - Encounter for general adult medical examination with abnormal findings Alanine Aminotransferase Today E66.9 - Obesity, unspecified, E78.1 - Pure hyperglyceridemia, Z00.01 - Encounter for general adult medical examination with abnormal findings Vitamin D 25-OH Total Today E66.9 - Obesity, unspecified, E78.1 - Pure hyperglyceridemia, Z00.01 - Encounter for general adult medical examination with abnormal findings TSH reflex Free T4 Today N92.6 - Irregular menstruation, unspecified, Z83.49 - Family history of other endocrine, nutritional and metabolic diseases HCG Quantitative Today N92.6 - Irregular menstruation, unspecified, Z83.49 - Family history of other endocrine, nutritional and metabolic diseases Influenza [id number] Immunization Today Z23 - Encounter for immunization
[2025-08-20 10:55] VITALS: BP 110/80; PULSE 81; RESP 16; TEMP 36.6; O2SAT 97; BMI 37.8
--- OUTSIDE RECORDS SUMMARY | 2025-08-20 11:15 | XMS_ITS | Patient Health Record ---
Author Organization MICHELLE - [facility] Address [address] [place] [address] Care Team Providers Care Bulk Clerk Name Role Phone NOT MICHELLE PCP, . Primary Care Provider BOGDAN Whelan [facility] Unavailable [phone] Allergies No Known Allergies Reason For Referral No Information Social History Tobacco Use: Social History Observation Description Date Details (start date - stop date) Never Smoker NA - NA Alcohol Screen Question Answer Notes Did you have a drink containing alcohol in the p ast year? No Points 0 Interpretation Negative Tobacco Use Question Answer Notes Are you a: Never smoker Problems No Known Problems Plan Of Treatment No Information Insurance Providers Payer Name Payer Address Payer Phone Subscriber Number Group Number Insured Name Patient Relationship to Insured Coverage Start Date Coverage End Date [employer] [address] [place] [address] [phone] [id number] Darling Duke Self - patient is the insured MEDICAID WRAP [address] [place] [address] [id number] Darling Duke Self - patient is the insured Medical (General) History Surgical History Surgery Date(Month/Year)
== END 2025-08-20 11:42 | disposition home or self-care (01) ==
LOC: HO.HMCC 09:46
PROVIDERS: PCP Internal Medicine; Visit Provider Internal Medicine
DX: Z23 Encounter for immunization (principal)

== ENCOUNTER 2025-08-20 09:46 | Outpatient (REF) | payer BC, MEDICAID, SELFPAY ==
[2025-08-20 13:45] LABS: Alanine Aminotransferase 25 U/L (0-31); Anion Gap 11 (12-20); Aspartate Amino Transferase 23 U/L (5-31); Blood Urea Nitrogen 8 mg/dL (9-16); Calcium 9.1 mg/dL (8.4-10.2); Carbon Dioxide 28 mmol/L (22-29); Chloride 104 mmol/L (96-108); Cholesterol 227 mg/dL (<200); Estimated Glomerular Filt Rate > 60; HDL Cholesterol 47 mg/dL (>40); Potassium 3.9 mmol/L (3.3-5.1); Sodium 139 mmol/L (135-145); Triglycerides 249 mg/dL (<150)
--- OUTSIDE RECORDS SUMMARY | 2025-08-20 15:02 | XMS_ITS ---
Author Name [facility] Organization Unknown Care Team Organization Name Specialty Phone Email Start Date End Da te [employer] 02/03/2025
== END 2025-08-20 09:47 | disposition home or self-care (01) ==
LOC: HO.HMGCLDS 09:46
PROVIDERS: PCP Internal Medicine; Visit Provider Internal Medicine
DX: Z00.01 Encounter for general adult medical examination with abnormal findings (principal); E78.1 Pure hyperglyceridemia; E66.9 Obesity, unspecified; N92.6 Irregular menstruation, unspecified; E55.9 Vitamin D deficiency, unspecified; Z23 Encounter for immunization; Z83.49 Family history of other endocrine, nutritional and metabolic diseases; Z68.37 Body mass index [BMI] 37.0-37.9, adult; Z71.89 Other specified counseling
CPT/HCPCS: 36415; 80048; 80061; 82306; 84443; 84450; 84460; 84702; 90471; 90656; 96127

== ENCOUNTER 2025-10-01 15:14 | Outpatient (REF) | payer BC, MEDICAID, SELFPAY ==
[2025-10-02 10:53] LABS: Bacterial Vaginosis PCR NEGATIVE (Negative); Candida Group PCR NOT DETECTED (Not Detect); Candida glab krusei PCR NOT DETECTED (Not Detect); Trichomonas vaginalis PCR NOT DETECTED (Not Detect)
[2025-10-02 12:00] LABS: CT PCR NOT DETECTED (Not Detect.); NG PCR NOT DETECTED (Not Detect.)
== END 2025-10-01 15:15 | disposition home or self-care (01) ==
LOC: HO.LNP 15:14
PROVIDERS: PCP Internal Medicine; Visit Provider Advanced Practice Midwife
DX: Z01.419 Encounter for gynecological examination (general) (routine) without abnormal findings (principal); Z20.2 Contact with and (suspected) exposure to infections with a predominantly sexual mode of transmission; Z30.09 Encounter for other general counseling and advice on contraception; Z79.3 Long term (current) use of hormonal contraceptives
CPT/HCPCS: 81515; 87491; 87591

== ENCOUNTER 2025-10-01 15:14 | Outpatient (AMB) | payer BC, MEDICAID, SELFPAY ==
--- NOTE | 2025-10-01 15:19 | A.OFFVIS_ITS ---
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 She does notice that she has decreased libido on hormones and so she is still is considering hormone free method of control she remembers that she had the Mirena twice in the past and 1 time it fell out with a discharge it had a bad odor it was put in soon and then she had another would not placed after that and then that 1 got stuck and she needed surgery to remove it after 5 years. She has a lot on her plate right now. She is working full-time at the [employer] [place] known by another name now, she has 3 kids who are growing up she has taking them to different kinds of after school practices she bought a house she has a landlord now with the tenant there is a lot going on and so she is barely sleeping. [facility] Medical History Vitamin D deficiency Obesity Hypertriglyceridemia Surgical History History of oral surgery History of section Family History Mother Osteoarthritis Asthma Mental health disorder Maternal Grandmother Colon cancer HTN (hypertension) Son Asthma Paternal Uncle Substance use disorder Paternal Uncle Substance use disorder Social History Housing: Apartment Patient Tobacco Use Status: Never used Tobacco e-Cigarette/Vaping Use: Never Used Substance Use Type: Marijuana Patient : No service: No Current occupational status: employed Cognitive needs: No Hearing needs: No Vision needs: No Female Reproductive History Menstrual Age of Menarche: 14 Date of last menstrual period: 09/19/25 control method: pills Date of last pap smear: 05/28/23 (negative pap smear, negative hpv ) Physical Exam Vital Signs: Last Vital Signs BP 108/74 10/01/25 15:24 BMI result Body Mass Index 36.6 Const General: healthy appearing, comfortable, no acute distress, well developed and alert Nutritional Appearance: average body habitus Orientation/consciousness: patient oriented x3 Limitations: no limitations HEENT Head: Yes normocephalic Neck Neck: Yes normal visual inspection Chest Chest palpation & inspection: normal inspection of the chest Breast/axilla inspection: normal inspection of the breasts and normal inspection of the axillae Breast/axilla palpation: normal palpation of the breasts and normal palpation of the axillae Resp Effort & Inspection: normal respiratory effort GI Inspection: Yes normal to inspection, No Abdominal wall edema and No distended Palpation (GI): Soft to palpation and nontender Other: External exam within normal limits vagina looks pink and moist with clear healthy appearing mucus cervix is nulliparous anterior pointing downwards. Uterus small anterior and anteverted secondary to 3 C-sections. Adnexa nontender good tone with Kegel. General: Yes bladder normal to palpation External Female Exam: normal external appearance and normal appearance of the urethra Speculum Exam - Vagina: normal appearance of the vagina, normal palpation and normal vaginal discharge Speculum Exam - Cervix: normal appearance of the cervix, normal palpation and nontender Bimanual exam- vagina & uterus: normal bimanual exam, normal palpation, uterine size normal, bladder normal to palpation, consistency normal, normal palpation, uterine mobility normal, uterine shape normal, No Cervical tenderness present, non-tender and no cervical motion tenderness Bimanual Exam- Adnexa, other: normal adnexae, no masses, normal and No adnexal tenderness Neuro General: patient oriented x3 Results Reviewed Results Reviewed: Name: Darling Erwin Age/Sex: 33/F Attending: Aarti Hollis CNM : 1990 Submitted by: Aarti Hollis CNM Copies to: MR #: [id number] Status: DEP REF Collected: 05/28/23 Location: [facility] Received: 05/31/23 Interpretation Satisfactory for evaluation. Negative for intraepithelial lesion or malignancy. HPV mRNA E6/E7: NOT DETECTED This assay detects E6/E7 viral messenger RNA (mRNA) from 14 high-risk HPV types (16, 18, 31, 33, 35, 39, 45, 51, 52, 56, 58, 59, 66, 68) HPV testing performed by [facility] [employer] [facility] [employer], [place], [place]. See reference johanne guillory of the EMR for entire report. Clinical Information LMP:05/21/23 Previous PAP test:Unknown date/findings Material Received ThinPrep-Cervical Electronically Signed By: OPAL Mora (ASCP) 06/15/23 1022 The Pap Test is a screening procedure with the inherent possibility of both false negative and false positive results. Results should be interpreted in the context of historic and current clinical findings. Reliability of the Pap Test is enhanced by performing the test on a regular repetitive basis. Patient: Darling Erwin Age/Sex: 33/F MR#: [id number] Page 1 of 1 Assessment & Plan Assessment & Plan (1) Screening for malignant neoplasm of cervix: Comment: 05/28/2023 Pap is negative with negative HPV. Code(s): Z12.4 - Encounter for screening for malignant neoplasm of cervix Category: Medical (2) Well woman exam with routine gynecological exam: Code(s): Z01.419 - Encounter for gynecological examination (general) (routine) without abnormal findings Category: Medical (3) control counseling: Comment: Has missed 5 days of pills, options discussed she will probably double up for 3 days but also I recommend condoms at minimum for 2 weeks from now on and any time she messes up. Other options discussed.///09/28/24-had messed up on pills again believes LMP 09/22. I recommend she restart the pills this evening and from tomorrow morning on take them every morning reviewed pills in detail.; 10/01/2025 she is keeping track of things with the pills with her daily pill reminder however she is considering a nonhormonal method and we discussed the Ra Brennan IUD in detail today and she signed the form and we will plan it for a future menses she will continue on the pills until then. Code(s): Z30.09 - Encounter for other general counseling and advice on contraception Category: Medical Plan -----Discussed in this visit the following: healthy balanced diet, regular and consistent exercise, getting recommended health screens, doing the best she can for her particular health concerns, kegel exercises, pap smear screening and followup recommendations, mammography screening and SBE, normal changes in cycles in her life stage--- .-I reviewed with the patient, all of the currently common used methods of control that are available. We reviewed how they work in the body, how they are taken, common side effects, uncommon side effects, precautions, and contraindications. -Discussed also factors that influence their effectiveness and use, and womens satisfaction with the method. -Discussed how each are used, and drawbacks of each method as well. -Methods covered included: condoms, control pills, control patches, control rings, Depo-Provera, Nexplanon, Mirena and Kyleena IUDs, and ParaGard IUDs. All of the above methods were covered in great detail including their side effect profiles and common experiences that women have and ways to mitigate against the negative experiences including attention to diet and exercise patient's with bleeding challenges that may occur her and efforts to time the initiation of the method to this start of the menstrual period. Reviewed all of these in terms of what she has used in the past and their side effects and different things that have happened to her with each of them discussed the similarities of both IUDs to each other in that they are both placed in her uterus however they function differently and 1 has hormones and 1 does not and so therefore the 1 that does not has no hormonal side effects whatsoever and she would eventually revert to her own body's the functions which she remembers as having not bad periods lasting 4-5 days, and increased libido which she would like to have back. I also reviewed how libido can decrease as we get older and also as we become stressed and exhausted with other life challenges which she certainly has on her plate. She decided to signed the form for the ParaGard IUD she will continue on pills until the IUD has been inserted and I recommend she await the arrival of the IUDs to [facility] and we will try for insertion of the IUD with the menses on its heaviest day after the IUD arrives if it takes 2 or 3 periods to accomplish this that is okay could she will continue on the pills till then. Medications: Refilled levonorgestrel-ethinyl estrad 0.15-0.03 mg 1 tab PO DAILY 84 tabs 4RF Coding Level of Care Code Est Pt Prev Care 18-39y(51209) Diagnoses Screening for malignant neoplasm of cervix Z12.4 Well woman exam with routine gynecological exam Z01.419 control counseling Z30.09
[2025-10-01 15:24] VITALS: BP 108/74; BMI 36.6
--- OUTSIDE RECORDS SUMMARY | 2025-10-01 21:45 | XMS_ITS | Patient Health Record ---
Author Organization MICHELLE - [facility] Address [address] [place] [address] Care Team Providers Care Receptionist Airline Lounge Name Role Phone NOT MICHELLE PCP, . Primary Care Provider BOGDAN Whelan [facility] Unavailable [phone] Allergies No Known Allergies Reason For Referral [...] Date [employer] [address] [place] [address] [phone] [id number] Darling Duke Self - patient is the insured MEDICAID WRAP [address] [place] [address] [phone] [id number] Darling Duke Self - patient is the insured Medical (General) History Surgical History Surgery Date(Month/Year)
== END 2025-10-02 08:05 | disposition home or self-care (01) ==
LOC: HO.HWS 15:14
PROVIDERS: PCP Internal Medicine; Visit Provider Advanced Practice Midwife
DX: Z12.4 Encounter for screening for malignant neoplasm of cervix (principal); Z01.419 Encounter for gynecological examination (general) (routine) without abnormal findings; Z30.09 Encounter for other general counseling and advice on contraception
CPT/HCPCS: 99395; 99459